=== PATIENT | female | born 1950 | race Caucasian/White ===

== ENCOUNTER 2017-03-17 11:06 | Emergency (ER) | payer MEDICARE, OTHER ==
--- NOTE | 2017-03-17 12:03 | ED Physician Documentation ---
PD HPI ABD PAIN - Stated complaint Stated Complaint: J TUBE CAME OUT - Chief complaint Chief Complaint: Abd Pain - History obtained from History obtained from: Patient - History of Present Illness Timing - onset: Today (about an hour ago - she was taking shower and caught the jtube by accident and it pulled out (it is held in with just tape as the balloons had been causing problems with wall irritation and erosion). She put it into the hole it came from and then was concerned about if it is in the right place. She called her surgeon who suggested she get it checked in the ED.) Timing - details: Abrupt onset, Now resolved Quality: No: Cramping, Aching, Pain Associated symptoms: No: Nausea, Vomiting, Diarrhea Similar symptoms before: Has not had sx before Review of Systems GI: denies: Abdominal Pain, Nausea, Vomiting, Bloody / black stool PD PAST MEDICAL HISTORY - Past Medical History Past Medical History: Yes Cardiovascular: None Respiratory: COPD Neuro: None Endocrine/Autoimmune: None : None HEENT: None Musculoskeletal: None Derm: None Other Past Medical History: Autonomic disorders, gastroparesis - Past Surgical History Past Surgical History: Yes General: Appendectomy /PREVENTIVE MEDICINE SPECIALIST: Hysterectomy HEENT: Tonsil/Adenoidectomy - Allergies Allergies/Adverse Reactions: Allergies Allergy/AdvReac Type Severity Reaction Status Date / Time hydromorphone AdvReac Hallucinati Verified 03/17/17 11:14 ons morphine AdvReac Hallucinati Verified 03/17/17 11:14 ons - Social History Does the pt smoke?: No Smoking Status: Never smoker Does the pt drink ETOH?: No Does the pt have substance abuse?: No - Immunizations Immunizations are current?: Yes PD ED PE NORMAL - Vitals Vital signs reviewed: Yes - General General: Alert and oriented X 3, No acute distress, Well developed/nourished - Abdomen Abdomen: Normal bowel sounds, Soft, Non tender, Non distended, Other (jtube coming from surgical hole without mucous/ bleeding/ nor discharge. ) - Back Back: No CVA TTP Results - Vitals Vitals: Oxygen O2 Source Room air - Rads (name of study) abd film iwth gastrograffin infused Radiology: Prelim report reviewed (normal dye into small bowel without extravasation.) PD MEDICAL DECISION MAKING - ED course Complexity details: considered differential, d/w patient, d/w desktop support consultant (Dr. Grubbs, on [facility], who suggested dye study to ensure location) Departure - Departure Disposition: 01 Home, Self Care Clinical Impression: Jejunostomy tube fell out Condition: Stable Record reviewed to determine appropriate education?: Yes Comments: The Radiology report says the tube is in the correct position and functioning. Okay to use it. Discharge Date/Time: 03/17/17 14:25
[2017-03-17] MEDS ORDERED: DIATR MEGLU/DIATRIZOATE SODIUM 120 ML BOTTLE PO ONE (12:21)
[2017-03-17 13:45] VITALS: BP 111/68
--- NOTE | 2017-03-17 13:56 | XRAY Preliminary Report ---
Exam: XR Abdomen 2 View IMPRESSION: 1. Percutaneous jejunostomy tube tip projects in the lower central abdomen. Injected contrast materia l opacifies the distal small bowel and cecum/ascending colon. There is no convincing evidence of leak or malpositioning of the tube. 2. Levoscoliosis of the thoracolumbar spine. [facility] SITE ID: [id number]
--- NOTE | 2017-03-17 13:59 | XRAY Report ---
EXAM: ABDOMEN RADIOGRAPHY EXAM DATE: 03/17/2017 12:49 PM. CLINICAL HISTORY: Confirm J tube placement. 60 mL of Gastrografin was injected by the ER physician th rough the jejunostomy tube prior to this exam. COMPARISON: None. TECHNIQUE: 2 views. FINDINGS: Lung Bases: Unremarkable. Bowel Gas Pattern: Within normal limits. No dilated loops or abnormal fluid levels. Free Air: None. Other: There is an apparent percutaneous jejunostomy tube with its tip projecting in the lower centra l abdomen. Contrast material has been injected through the tube and opacifies the distal small bowel and cecum/ascending colon. No extraluminal contrast is seen to indicate malpositioning of the tube. No acute bony abnormality is identified. There is levoscoliosis of the thoracolumbar spine. IMPRESSION: 1. Percutaneous jejunostomy tube tip projects in the lower central abdomen. Injected contrast materia l opacifies the distal small bowel and cecum/ascending colon. There is no convincing evidence of leak or malpositioning of the tube. 2. Levoscoliosis of the thoracolumbar spine. [facility] Referring Provider Line: [phone] SITE ID: [id number]
== END 2017-03-17 14:25 | disposition home or self-care (01) ==
LOC: ED 11:06
DX: Z43.4 Encounter for attention to other artificial openings of digestive tract (principal)
CPT/HCPCS: 74020; 99283; Q9963